=== PATIENT | female | born 1985 | race Caucasian/White ===

== ENCOUNTER 2017-01-21 04:51 | Observation (INO) | payer OTHER ==
[~2017-01-21] VITALS: Ht 154.9 cm; Wt 61.4 kg
[~2017-01-21 04:51] MED LIST: BISACODYL 10 MG SUPP RECTAL PRN; NALOXONE HCL 0.4 MG/ML AMP IV PUSH PRN; ONDANSETRON HCL 4 MG/2 ML VIAL IV PUSH PRN; SODIUM CHLORIDE 0.9% FLUSH 10 ML FLUSH IV FLUSH PRN
--- NOTE | 2017-01-21 05:38 | HHI.HP ---
HPI Service [facility] Hospitalists Primary Care Physician No Primary Care Physician Admission Diagnosis Diagnoses: (1) Esophageal obstruction due to food impaction Chief Complaint: "Food is stuck at the bottom of my throat." Travel History International Travel<30 Days: No Contact w/Intl Traveler <30 Da: No Traveled to Known Affected Are: No History of Present Illness Mrs. Xie is 31 yo, with no significant medical history. She reported she was eating dinner on the evening of 01/20/17 when a piece of steak "got stuck way down in my throat." Pt stated she since the start of the year she has experienced two similar events "but those things passed on through. " In this episode, she reported the steak "stayed there" and when she has tried to drink "my muscles contract really hard around it and I have pain." She stated she is unable to swallow fluids and even saliva accumulation leads her "to throw up." Mrs. Xie stated that she finds being in an upright or "laying back at an angle is ok." She noted that is she is "laying flat on my back it feels like I am get choked"; otherwise she is without shortness of breath/ dyspnea. She reported having a "sore throat" from vomiting, as well as a change in how her voice sounds, again from vomiting. She said she went to [facility] in [place] for treatment. The ED team determined she would need to be seen by GI for treatment and Mrs. Xie was [place] [facility] [place] Review of Systems Constitutional: COMPLAINS OF: Change in appetite (Due to pain/discomfort since swallowing the food that led to her current situation. Otherwise, no change.), DENIES: Fever Endocrine: DENIES: Abnorml menstrual pattern (LMP reported to be 3 weeks ago.) , Polyuria, Polyphagia Eyes: DENIES: Blurred vision, Double Vision Ears, nose, mouth, throat: COMPLAINS OF: Throat pain (Reported to be "at the bottom of my throat" as well as overall throat "from throwing up."), Hoarseness , DENIES: Tinnitus, Hearing loss Respiratory: COMPLAINS OF: Cough, Shortness of breath (assocaited with vomiting and "gagging") Cardiovascular: DENIES: Chest pain, Dyspnea on Exertion Gastrointestinal: COMPLAINS OF: Abdominal pain (As noted in HPI), Vomiting, DENIES: Black stools, Constipation, Diarrhea, Nausea Genitourinary: DENIES: Urinary frequency, Hematuria, Dysuria Musculoskeletal: DENIES: Joint pain, Muscle aches, Stiffness Integumentary: DENIES: Abnormal pigmentation, Rash Hematologic/lymphatic: DENIES: Bruising, Lymphadenopathy Immunologic/allergic: DENIES: Eczema, Urticaria Neurologic: DENIES: Abnormal gait, Headache Psychiatric: COMPLAINS OF: Anxiety (Related to her current situation. Otherwise no anxiety was noted/reported.), DENIES: Depression Past Family Social History Past Medical History Pt denied previous medical history. Past Surgical History Pt reported having two C-sections. Otherwise, she has had no surgeries. Reported Medications Reported Meds & Active Scripts Active No Active Prescriptions or Reported Medications Allergies: Coded Allergies: No Known Allergies (Unverified , 01/20/17) Active Ordered Medications Current Medications Medications (Trade) Dose Ordered Sig/Silvio Route Start Time Stop Time Status Last Admin (NS Flush) 2 ml UNSCH PRN IV FLUSH 01/21/17 03:45 (NS Flush) 2 ml BID IV FLUSH 01/21/17 09:00 (Narcan Inj) 0.4 mg UNSCH PRN IV PUSH 01/21/17 03:45 (Dulcolax Supp) 10 mg DAILY PRN RECTAL 01/21/17 03:45 (Zofran Inj) 4 mg Q6HR PRN IV PUSH 01/21/17 04:15 Family History Pt denied family history of cancer, diabetes, cardiac disease. Both parents are reported to be living and in good health. Social History Pt denied any nicotine use. Alcohol use was denied. Pt denied illicit/recreational drug use. She is with two children. Physical Exam Physical Exam GENERAL: Pt is encountered laying a bed, well-nourished, well-developed patient , in no apparent distress. SKIN: No rashes, ecchymoses or lesions. Cool and dry. Multiple tattoos are noted. HEAD: Atraumatic. Normocephalic. EYES: Pupils equal round and reactive. Extraocular motions intact. No scleral icterus. No injection or drainage. ENT: Nose without bleeding or purulent drainage or septal hematoma. Airway patent. NECK: Trachea midline. No lymphadenopathy. Supple and nontender, no meningeal signs. CARDIOVASCULAR: Regular rate and rhythm without murmurs, gallops, or rubs. RESPIRATORY: Clear to auscultation. Breath sounds equal bilaterally. No wheezes , rales, or rhonchi. Stridor was not appreciated. GASTROINTESTINAL: Abdomen soft, non-tender, nondistended. No hepato- splenomegaly or guarding. MUSCULOSKELETAL: Extremities without clubbing, cyanosis, or edema. NEUROLOGICAL: Awake and alert. Cranial nerves II through XII intact. Motor and sensory grossly within normal limits. Five out of 5 muscle strength in all muscle groups. Speech was fluent with hoarse vocalization.. Imaging No acute disease Caprini VTE Risk Assessment Caprini VTE Risk Assessment: No/Low Risk (score <= 1) Caprini Risk Assessment Model Point Value = 1 Point Value = 2 Point Value = 3 Point Value = 5 Age 41-60 Minor surgery BMI > 25 kg/m2 Swollen legs Varicose veins or History of unexplained or recurrent spontaneous Oral contraceptives or hormone replacement Sepsis (< 1 month) Serious lung disease, including pneumonia (< 1 month) Abnormal pulmonary function Acute myocardial infarction Congestive heart failure (< 1 month) History of inflammatory bowel disease Medical patient at bed rest Age 61-74 Arthroscopic surgery Major open surgery (> 45 min) Laparoscopic surgery (> 45 min) Malignancy Confined to bed (> 72 hours) Immobilizing plaster cast Central venous access Age >= 75 History of VTE Family history of VTE Factor V Leiden Prothrombin [id number] Lupus anticoagulant Anticardiolipin antibodies Elevated serum homocysteine Heparin-induced thrombocytopenia Other congenital or acquired thrombophilia Stroke (< 1 month) Elective arthroplasty Hip, pelvis, or leg fracture Acute spinal cord injury (< 1 month) Prophylaxis Regimen Total Risk Factor Score Risk Level Prophylaxis Regimen 0-1 Low Early ambulation 2 Moderate Order ONE of the following: *Sequential Compression Device (SCD) *Heparin 5000 units SQ BID 3-4 Higher Order ONE of the following medications: *Heparin 5000 units SQ TID *Enoxaparin/Lovenox 40 mg SQ daily (WT < 150 kg, CrCl > 30 mL/min) *Enoxaparin/Lovenox 30 mg SQ daily (WT < 150 kg, CrCl > 10-29 mL/min) *Enoxaparin/Lovenox 30 mg SQ BID (WT < 150 kg, CrCl > 30 mL/min) AND/OR *Sequential Compression Device (SCD) 5 or more Highest Order ONE of the following medications: *Heparin 5000 units SQ TID (Preferred with Epidurals) *Enoxaparin/Lovenox 40 mg SQ daily (WT < 150 kg, CrCl > 30 mL/min) *Enoxaparin/Lovenox 30 mg SQ daily (WT < 150 kg, CrCl > 10-29 mL/min) *Enoxaparin/Lovenox 30 mg SQ BID (WT < 150 kg, CrCl > 30 mL/min) AND *Sequential Compression Device (SCD) Assessment and Plan Problem List: (1) Esophageal obstruction due to food impaction ICD Code: K22.2 - Esophageal obstruction; T18.128A - Food in esophagus causing other injury, initial encounter Status: Acute Assessment and Plan Mrs. Xie is 31 yo, with no significant medical history. She reported she was eating dinner on the evening of 01/20/17 when a piece of steak "got stuck way down in my throat." Esophageal obstruction due to food impaction Nausea -Admit for observation -GI consulted -NPO -Labs ordered -Zofran for nausea DVT prophylaxis -Pt to ambulate -pharmacological AC on hold in advance of possible intervention. Code Status Full code Discussed Condition With Pt and Parth Uriarte Jr. Jan 21, 2017 05:38
[2017-01-21] MEDS ORDERED: SODIUM CHLOR 0.9% 1000 ML INJ 1,000 ML IV SCH (07:45)
[2017-01-21 08:00] VITALS: BP 99/68; PULSE 115; RESP 18; TEMP 98.6; O2SAT 100
[2017-01-21] MEDS ORDERED: LACTATED RINGER'S 1000 ML IV PRN (08:15)
[2017-01-21] MEDS ORDERED: SODIUM CHLORID 0.9% 500 ML IV PRN (08:15)
[2017-01-21] MEDS ORDERED: CHLORHEXIDINE GLUCONATE 2 % 1 PACK (2 CLOTHS) TOPICAL PRN (08:15)
[2017-01-21] MEDS ORDERED: METOPROLOL TARTRATE 25 MG TAB PO PRN (08:15)
[2017-01-21] MEDS ORDERED: INSULIN HUMAN REGULAR 1,000 UNITS/10 ML VIAL SQ PRN (08:15)
[2017-01-21] MEDS ORDERED: POVIDONE IODINE 5% (ANTISEPSIS KIT) 4 APPLICATIONS EACH NARE PRN (08:15)
[2017-01-21] MEDS ORDERED: SODIUM CHLORIDE 0.9% FLUSH 10 ML FLUSH IV FLUSH SCH (09:00)
--- NOTE | 2017-01-21 10:44 | GIPROC ---
[facility] [address] [facility]. [facility], [id number] EGD PROCEDURE REPORT EXAM DATE: 01/21/2017 PATIENT NAME: Cynthia Xie MR #: [id number] BIRTHDATE: 1985 ATTENDING: Debbie Peterson MD ORDER #: [id number] PHARMACEUTICAL ANALYST: Annie Posadas and Jett Mathew STATUS: inpatient INDICATIONS: The patient is a 31 yr old female here for an EGD due to dysphagia and foreign body removal from esophagus PROCEDURE PERFORMED: EGD w/ fb removal MEDICATIONS: None and Per Anesthesia. TOPICAL ANESTHETIC: CONSENT: The patient understands the risks and benefits of the procedure and understands that these risks include, but are not limited to: sedation, allergic reaction, infection, perforation and/or bleeding. Alternative means of evaluation and treatment include, among others: physical exam, x-rays, and/or surgical intervention. The patient elects to proceed with this endoscopic procedure. medical equipment was checked for proper function. Hand hygiene and appropriate measures for infection prevention was taken. After the risks, benefits and alternatives of the procedure were thoroughly explained, Informed consent was verified, confirmed and timeout was successfully executed by the treatment team. The patient was anesthetized with topical anesthesia and the Pentax EG-[id number] endoscope was introduced through the mouth and advanced to the second portion of the duodenum. Retroflexed views revealed no abnormalities The gastroscope was then slowly withdrawn and removed. ESOPHAGUS: There was LA Class C esophagitis noted. Meat bolus at distal esophagus, gently pushed into the stomach. STOMACH: The mucosa of the stomach appeared normal. DUODENUM: The duodenal mucosa appeared normal in the bulb and second portion of the duodenum. ADVERSE EVENTS: There were no complications. IMPRESSIONS: 1. There was LA Class C esophagitis noted 2. The mucosa of the stomach appeared normal 3. Normal duodenal mucosa in the bulb and second portion of the duodenum 4. Retroflexed views revealed no abnormalities RECOMMENDATIONS: 1. Anti-reflux regimen 2. Start PPI 3. Avoid NSAIDS PATIENT CONDITION: stable DISPOSITION: Home REPEAT EXAM: Return 2 weeks EGD with dilatation Debbie Peterson MD eSigned: Debbie Peterson MD 01/21/2017 10:44 AM cc: PATIENT NAME: Cynthia Xie MR#: [id number]
[2017-01-21] MEDS ORDERED: DO NOT ADM ANY ANTICOAGULANT DRUGS PRN (11:30)
[2017-01-21 11:41] VITALS: BP 111/55; PULSE 105; RESP 18; TEMP 98.8; O2SAT 100
--- NOTE | 2017-01-21 11:53 | MB ---
cc: NATHAN HUNTLEY M.D. DATE OF CONSULTATION: 01/21/2017 REFERRING PHYSICIAN: Dr. Guardado. REASON FOR CONSULTATION: Esophageal foreign body dysphagia. HISTORY OF PRESENT ILLNESS: Miss Xie is a 31-year-old lady who says she was eating dinner last night and she felt that a piece of steak got stuck in the lower part of her esophagus. She states that she has been unable to clear her throat since then. She has been unable to handle secretions and saliva, eventually she came to the hospital for this. She says she had multiple episodes like this in the past but every time the food bolus has passed, This time it did not pass. She has had no previous workup for this. She denies any reflux symptoms. REVIEW OF SYSTEMS Review of symptoms of no sternal discomfort, dysphagia, unable to swallow. PAST MEDICAL HISTORY None. PAST SURGICAL HISTORY . MEDICATIONS On admission none. ALLERGIES None documented FAMILY HISTORY: Family history is noncontributory. SOCIAL HISTORY No tobacco, alcohol. PHYSICAL EXAMINATION: IN GENERAL: The physical examination reveals a well-nourished lady in no apparent distress. VITAL SIGNS: Vitals are stable. HEAD/NECK: Head and neck examination anicteric sclerae. CHEST: Bilateral air entry with rales. ABDOMEN: Abdomen is soft, nontender. No hepatosplenomegaly. Bowel sounds are present. CENTRAL NERVOUS SYSTEM: Exam is nonfocal. RECTUM: Rectal exam deferred at this time. IMPRESSION Esophageal foreign body. RECOMMENDATIONS N.p.o. At this time with IV fluids. Esophagogastroduodenoscopy with foreign body removal planned for later today under general anesthesia. The risks, limitations have been discussed with her further recommendations to follow. Thank you for this referral. MD ADITYA Buckley/charan /10:24 AM /11:52 AM
[2017-01-21] MEDS ORDERED: PANT40TA3 PO (11:56)
--- NOTE | 2017-01-21 11:59 | HHI.DCPOC ---
Discharge Care Plan Diagnosis: (1) Esophagitis (2) Esophageal obstruction due to food impaction Goals to Promote Your Health * To prevent worsening of your condition and complications * To maintain your health at the optimal level Directions to Meet Your Goals Please avoid all NSAID products such as Aspirin, Ibuprofen, Naproxen, Aleve, Advil, Goodys powder, etc. Recommend resuming mechanical soft diet and advance slowly as tolerated. You will need to follow up with Dr. Peterson of Gastroenterology in one week with repeat EGD in 2 weeks. Take your medications as prescribed Follow your dietary instruction Follow activity as directed Keep your appointments as scheduled Take your immunizations and boosters as scheduled If your symptoms worsen call your PCP, if no PCP go to Urgent Care Center or Emergency Room Smoking is Dangerous to Your Health. Avoid second hand smoke Call the 24-hour hour crisis hotline for domestic abuse at [email or web address] Blanchard Jan 21, 2017 11:59
[2017-01-21] MEDS ORDERED: PROPOFOL 200 MG/20 ML AMP IV ONE (12:00)
[2017-01-21] MEDS ORDERED: LIDOCAINE HCL 1% PF 5 ML SYRINGE OTHER ONE (12:00)
[2017-01-21] MEDS ORDERED: SUCCINYLCHOLINE CHLORIDE 100 MG/5 ML SYRINGE IV PUSH ONE (12:00)
[2017-01-21] MEDS ORDERED: DEXAMETHASONE SOD PHOS 4 MG/ML VIAL IV ONE (12:00)
[2017-01-21] MEDS ORDERED: ONDANSETRON HCL 4 MG/2 ML VIAL IV ONE (12:00)
[2017-01-21] MEDS ORDERED: SODIUM CHLORID 0.9% 500 ML INJ 500 ML IV ONE (12:15)
[2017-01-21 12:17] LABS: HEMOGLOBIN A1b 0.7 %; HEMOGLOBIN Ao 86.3 %; HEMOGLOBIN F 0.7 %; HEMOGLOBIN LA1C 1.9 %; HEMOGLOBIN P3 3.5 %
[2017-01-21] MEDS ORDERED: PANTOPRAZOLE SOD 40 MG DELAYED RELEASE TAB PO ONE (12:30)
[2017-01-21 13:34] VITALS: BP 104/58; PULSE 94; RESP 18; TEMP 97.6; O2SAT 100
[2017-01-22] MEDS ORDERED: PANTOPRAZOLE SOD 40 MG DELAYED RELEASE TAB PO SCH (09:00)
== END 2017-01-21 13:45 | disposition home or self-care (01) ==
LOC: NEDDLT 04:51 → NEPFCDU 04:54
PROVIDERS: ADMIT Internal Medicine; ATTEND Internal Medicine
DX: T18.128A Food in esophagus causing other injury, initial encounter (principal); R11.2 Nausea with vomiting, unspecified; K20.8 Other esophagitis; R07.0 Pain in throat; R06.02 Shortness of breath; R05 Cough
CPT/HCPCS: 00740; 43247; 71010; 80053; 83036; 83690; 84443; 84702; 85025; 96361; 96372; 96374; 96375; 99285; G0378; J0330; J1100; J1170; J1610; J2060; J2405; J2765; J3010; J7030; J7040; J7120